=== PATIENT | female | born 1995 | race African-American/Black ===

== ENCOUNTER 2020-02-05 18:56 | Emergency (ER) | payer OTHER, SELFPAY ==
[2020-02-05] VITALS (16 sets, daily range): BP systolic 94–131; BP diastolic 44–81; PULSE 69–111; RESP 14–28; TEMP 36.8–37; O2SAT 96–99; BMI 35.4
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
[2020-02-05] MEDS: LORazepam 2 MG/ML VIAL IM ×2 (19:15→19:40)
[2020-02-05] MEDS: Haloperidol Lactate 5 MG/ML VIAL IM (19:15)
[2020-02-05] MEDS: OLANZapine 10 MG VIAL IM (19:25)
--- NOTE | 2020-02-05 19:51 | PC.NURSE ---
Pt begining to calm but febily attempting to remove restraints. Resp is unlabored, no depression, skin pwd. crying.
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
--- NOTE | 2020-02-05 20:00 | PC.NURSE ---
Sleeping. Skin PWD> good csm of extremities.
--- NOTE | 2020-02-05 20:39 | ECG_ITS ---
Test Reason : WEAKNESS/NEAR SYNCOPE Blood Pressure : / mmHG Vent. Rate : 071 BPM Atrial Rate : 071 BPM P-R Int : 134 ms QRS Dur : 092 ms QT Int : 372 ms P-R-T Axes : 054 068 036 degrees QTc Int : 404 ms Normal sinus rhythm Normal ECG No previous ECGs available Referred By: Ewelina Wallace Electronically Signed By:MARILEE MCGOVERN
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
--- NOTE | 2020-02-05 21:34 | PC.NURSE ---
LATE ENTRY. During patient's last phone call with Mom, [employer] [phone], pt voiced disappointment that Mom was not more supportive and states i should have just overdosed This RN and Isidro both present and Provider aware of SI statement.
--- NOTE | 2020-02-05 21:41 | PC.NURSE ---
late entry. 1909. as patient continued to escalate and hyperventilate provider offered pt po ativan which was refused
--- NOTE | 2020-02-05 21:44 | PC.NURSE ---
Pt has yet to be undressed. Is difficult to arouse. Pants and shirt left in place untill pt is more alert and able to consent to removal of clothing.
[2020-02-05 21:49] LABS: MANUAL DIFF FLAG NO
[2020-02-05 21:50] LABS: Basophils Percent Auto 0.3 % (0-2); Eosinophils Absolute Auto 0.1 X10*3/uL (0.0-0.4); Hematocrit 39.8 % (37-47); Hemoglobin 12.6 g/dl (12.0-16.0); Imm Gran Abs Auto 0.02 X10*3/uL (0.00-0.03); Imm Gran Pct Auto 0.3 % (0.0-0.4); Lymphocytes Absolute Auto 1.6 X10*3/uL (1.2-4.9); Lymphocytes Percent Auto 21.5 % (20-40); Mean Corpuscular HGB Conc 31.7 g/dl (31.0-35.0); Mean Corpuscular Hemoglobin 27.9 pg (27.0-33.0); Mean Corpuscular Volume 88.1 fL (80-98); Monocytes Absolute Auto 0.4 X10*3/uL (0.1-1.2); Monocytes Percent Auto 5.3 % (2-11); Neutrophils Absolute Auto 5.3 X10*3/uL (2.0-8.3); Neutrophils Percent Auto 71.6 % (45-73); Platelet Count 255 X10*3/uL (160-400); Red Blood Count 4.52 X10*6/uL (4.20-5.50); Red Cell Distribution Width 14.1 % (11.0-16.0); White Blood Count 7.4 X10*3/uL (4.8-10.8)
[2020-02-05 22:23] LABS: Troponin-I High Sensitivity < 3.5 ng/L (<3.5-17.0)
[2020-02-05 22:25] LABS: HCG Quantitative < 2 mIU/mL
[2020-02-05 22:32] LABS: Anion Gap 15 (12-20); Blood Urea Nitrogen 9 mg/dL (9-16); Calcium 8.8 mg/dL (8.4-10.2); Carbon Dioxide 24 mmol/L (22-29); Chloride 111 mmol/L (96-108); Creatinine Clr Calc Pharmacy 101.9; Estimated Glomerular Filt Rate > 60; Glucose Random 79 mg/dL (60-115); Potassium 3.9 mmol/l (3.3-5.1); Sodium 146 mmol/L (135-145)
[2020-02-05 23:01] LABS: Salicylate < 5.0 mg/dL (15-30)
--- NOTE | 2020-02-05 23:17 | PC.NURSE ---
Pt transferred to pod by stretcher. Pt able to stand and take a few steps to bed 3. pt awake and alert, changed into hospital clothing. pt immediatly made herself comfortable and requesting additional blankets. summary faxed to [facility].
--- NOTE | 2020-02-05 23:20 | PC.NURSE ---
EKG and urine sample still need to be completed.
--- NOTE | 2020-02-05 23:41 | PC.NURSE ---
mother called to check on patient. mother's name is [facility] [phone]
[2020-02-06 00:53] VITALS: RESP 16
[2020-02-06 01:23] LABS: Amphetamine Screen Urine Not Detected (Not Detect); Barbiturates, Urine Not Detected (Not Detect); Benzodiazepines Screen Urine Not Detected (Not Detect); Cannabinoid Screen Urine Not Detected (Not Detect); Cocaine Screen Urine POSITIVE (Not Detect); Opiate Screen Urine Not Detected (Not Detect); Phencyclidine Screen Urine Not Detected (Not Detect)
[2020-02-06 01:51] LABS: Ethanol 86 mg/dL
[2020-02-06 01:52] VITALS: BP 123/77; PULSE 76; RESP 16; O2SAT 100
--- NOTE | 2020-02-06 01:59 | PC.NURSE ---
pt slow to cooperate with repositioning for vital signs. pt did roll on her back/able to follow commands,promised in exchange for warm blankets.
--- NOTE | 2020-02-06 02:01 | PC.NURSE ---
pt refusing 12 lead ekg.
[2020-02-06 02:05] VITALS: BP 123/77; PULSE 76; RESP 16; O2SAT 100
[2020-02-06 04:35] VITALS: RESP 16
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
[2020-02-06 06:35] VITALS: PULSE 78; RESP 16; TEMP 37; O2SAT 96
--- NOTE | 2020-02-06 07:13 | PC.NURSE ---
Report received. PT is sleeping in bed. Breathing is even and unlabored. On Section 12 at this time, waiting to be seen by N.
--- NOTE | 2020-02-06 08:04 | PC.NURSE ---
BHN at bedside.
--- NOTE | 2020-02-06 09:15 | PC.NURSE ---
PT is sleeping in her room. Breathing is even and unlabored. Per BHN, PT due to be DC.
[2020-02-06 09:29] VITALS: BP 100/60; PULSE 103; RESP 18; TEMP 36.9
== END 2020-02-06 10:08 | disposition home or self-care (01) ==
PROVIDERS: Nurse Practitioner Family; Emergency Provider Student in an Organized Health Care Education/Training Program
DX: R45.851 Suicidal ideations (principal); F14.120 Cocaine abuse with intoxication, uncomplicated; F10.120 Alcohol abuse with intoxication, uncomplicated; Y90.4 Blood alcohol level of 80-99 mg/100 ml
CPT/HCPCS: 36415; 80048; 80307; 80320; 83735; 84484; 84702; 85025; 93005; 93010; 96372; 99285; 99291; G0480